=== PATIENT | female | born 1985 | race Caucasian/White ===

== ENCOUNTER → 2017-03-24 | Outpatient (CLI) | payer BC | END | disposition home or self-care (01) | LOC: LABWHC1 07:56 | PROVIDERS: ATTEND Obstetrics & Gynecology | DX: Z36.85 Encounter for antenatal screening for Streptococcus B (principal) | CPT/HCPCS: 36415; 82950 ==

== ENCOUNTER 2019-10-30 10:41 | Inpatient (IN) | payer BC ==
[2019-10-30] MEDS ORDERED: TERBUTALINE 1 MG/ML VIAL SQ PRN (11:01)
[2019-10-30] MEDS ORDERED: CARBOPROST TROMETHAMINE 250 MCG/ML 1 ML AMP IM PRN (11:01)
[2019-10-30] MEDS ORDERED: LIDOCAINE 0.5% (PF) 5 MG/ML (50 ML SDV) SQ PRN (11:01)
[2019-10-30] MEDS ORDERED: OXYTOCIN 10 UNIT/ML 1 ML VIAL IM PRN (11:01)
[2019-10-30] MEDS ORDERED: METHYLERGONOVINE 0.2 MG/ML 1 ML AMP IM PRN (11:01)
[2019-10-30] MEDS ORDERED: OXYTOCIN 30 UNITS/500 ML NS 30 UNIT in SALINE 1 500ML.BAG IV SCH (11:15)
--- NOTE | 2019-10-30 11:23 | P.HPOB ---
History of Present Illness H&P Date: 10/30/19 Chief Complaint: IUP@ 38 4/7 weeks, labor This is a pleasant 34-year-old 3 para 2001 at 39-4/7 weeks that presents to labor and delivery with regular painful contractions. Patient states contractions started around 6:30 this morning and became regular and painful matt und 9 AM. Patient denies loss of fluid or vaginal bleeding at this time. Patient notes good movement. Patient has been receiving routine care with myself since the first trimester. care is been essentially uncomplicated on blood work she has a blood type of A+, rubella status immune, RPR nonreactive, B surface antigen negative, HIV negative, she did pass her one-hour Glucola on 08/07. Group beta strep was negative on 10/08. Review of Systems Constitutional: Denies chills, Denies fatigue, Denies fever Ears, nose, mouth and throat: Denies headache Cardiovascular: Reports leg edema Respiratory: Denies dyspnea Gastrointestinal: Denies constipation, Denies diarrhea, Denies nausea, Denies vomiting Genitourinary: Reports Past Medical History Past Medical History: No Reported History Additional Past Medical History / Comment(s): eczema History of Any Multi-Drug Resistant Organisms: None Reported Additional Past Surgical History / Comment(s): non-cancerous lumps removed from vocal cords Past Anesthesia/Blood Transfusion Reactions: No Reported Reaction Past Psychological History: No Psychological Hx Reported Smoking Status: Never smoker Past Alcohol Use History: Occasional Past Drug Use History: None Reported - Past Family History Mother Family Medical History: Hyperlipidemia Medications and Allergies Home Medications Medication Instructions Recorded Confirmed Type Omeprazole [PriLOSEC] 1 tab DAILY 03/17/17 06/17/17 History Allergies Allergy/AdvReac Type Severity Reaction Status Date / Time amoxicillin Allergy Rash/Hives Verified 08/09/15 04:53 penicillin G Allergy Rash/Hives Verified 08/09/15 04:53 Exam Osteopathic Statement: *. No significant issues noted on an osteopathic structural exam other than those noted in the History and Physical/Consult. Vital Signs Temp Pulse Resp BP Pulse Ox 10/30/19 11:00 98.2 F 76 16 120/70 100 Intake and Output 10/29/19 10/30/19 10/30/19 22:59 06:59 14:59 Other: Weight 79.832 kg Targeted physical exam is performed on this date in general this is a well- nourished well-developed female in obvious active labor. Breathing is noted to be nonlabored, heart has regular rhythm, abdomen is gravid and appropriate for gestational age, on cervical exam she is 7/50/-2. heart tones are noted to be category 1 and she is thang every 2 minutes. Assessment and Plan (1) Active labor at term Current Visit: No Status: Acute Code(s): GHM5207 - SNOMED Code(s): 12069478 Plan: Patient is admitted to labor and delivery with anticipation of spontaneous vaginal delivery. Patient does desire epidural anesthesia is notified for placement.
[2019-10-30 11:33] LABS: Basophils % (A) 0 %; Eosinophils # (A) 0.1 k/uL (0-0.7); Eosinophils % (A) 1 %; HCT 33.4 % (34.0-46.0); HGB 10.6 gm/dL (11.4-16.0); Hypochromasia Marked; Lymphocytes # (A) 1.3 k/uL (1.0-4.8); Lymphocytes % (A) 11 %; MCH 25.3 pg (25.0-35.0); MCHC 31.7 g/dL (31.0-37.0); MCV 79.9 fL (80.0-100.0); Mean Platelet Volume 7.5; Monocytes # (A) 0.5 k/uL (0-1.0); Monocytes % (A) 4 %; Neutrophils # (A) 9.8 k/uL (1.3-7.7); Neutrophils % (A) 83 %; Platelet Count 401 k/uL (150-450); RBC 4.18 m/uL (3.80-5.40); RDW 14.3 % (11.5-15.5); WBC 11.8 k/uL (3.8-10.6)
[2019-10-30] MEDS: LACTATED RINGERS 1,000 ML IV SCH (11:54)
[2019-10-30 12:10] LABS: Anisocytosis (M) Present; Poikilocytosis (M) Present
[2019-10-30] MEDS ORDERED: ROPIVACAINE 100 MG, fentaNYL (PF) 200 MCG in SODIUM CHLORIDE 0.9% 76 ML EPIDURAL ONE (12:19)
--- NOTE | 2019-10-30 15:03 | P.PROBDLV ---
Vaginal Delivery Note - . Vaginal Delivery Note: This is a pleasant 34-year-old 3 para 2001 at 39-5/7 weeks that presents to labor and delivery with complaints of regular painful contractions. Patient was noted to be 7 cm upon admission. Patient subsequently got an epidural which was placed to the anesthesia Department without difficulty. Patient underwent amniotomy and clear fluid was obtained. Patient progressed to complete began pushing and had a normal spontaneous vaginal delivery of a viable male at 1442, weight of 8 lbs. 1 oz. with Apgars of 8 and 9 at one and 5 minutes respectively. After two-minute delayed the umbilical cord was doubly clamped and cut and the placenta was delivered spontaneously intact with a three-vessel cord being noted. On inspection the patient's vaginal vault a second-degree midline laceration was noted through an old episiotomy scar. This was infused with lidocaine and repaired in the usual fashion with 3-0 Rapide. Hemostasis was appreciated afterwards. The uterus was noted to be firm and below the umbilicus. Estimated blood loss 200 mL. Next All counts are correct 2 patient and infant tolerated delivery well and are resting comfortably.
[2019-10-30] MEDS ORDERED: ZOLPIDEM 5 MG TAB PO PRN (15:17)
[2019-10-30] MEDS ORDERED: LANOLIN CREAM 5 GM TUBE TOPICAL PRN (15:17)
[2019-10-30] MEDS ORDERED: diphenhydrAMINE 25 MG CAP PO PRN (15:17)
[2019-10-30] MEDS ORDERED: WITCH HAZEL 1 EACH MED..PAD TOPICAL PRN (15:17)
[2019-10-30] MEDS ORDERED: ACETAMINOPHEN TAB 325 MG TAB PO PRN (15:17)
[2019-10-30] MEDS ORDERED: SIMETHICONE 80 MG CHEWABLE PO PRN (15:17)
[2019-10-30] MEDS ORDERED: BENZOCAINE/MENTHOL SPRAY 1 GM/SPRAY AEROSOL TOPICAL PRN (15:17)
[2019-10-30] MEDS ORDERED: HYDROCORTISONE 2.5% RECTAL CREAM 30 GM TUBE RECTAL PRN (15:17)
[2019-10-30] MEDS ORDERED: diphenhydrAMINE 50 MG CAP PO PRN (15:17)
[2019-10-30] MEDS ORDERED: OXYTOCIN 20 UNITS/1000 ML NS 1,000 ML IV SCH (15:17)
[2019-10-30] MEDS ORDERED: HYDROcodone/APAP 5-325MG 1 EACH TAB PO PRN (15:17)
[2019-10-30] MEDS ORDERED: diphenhydrAMINE 50 MG/ML 1 ML VIAL IVP PRN ×2 (15:17)
[2019-10-30] MEDS: IBUPROFEN 600 MG TAB PO PRN ×2 (17:37→23:43)
[2019-10-30] MEDS: SENNOSIDES-DOCUSATE SODIUM 1 EACH TAB PO SCH (20:03)
[2019-10-30 20:57] VITALS: RESP 16
[2019-10-31 00:42] VITALS: TEMP 97.9
[2019-10-31] MEDS: IBUPROFEN 600 MG TAB PO PRN ×2 (05:26→12:02)
[2019-10-31 05:59] LABS: Basophils % (A) 0 %; Eosinophils # (A) 0.1 k/uL (0-0.7); Eosinophils % (A) 1 %; HCT 30.1 % (34.0-46.0); HGB 9.4 gm/dL (11.4-16.0); Hypochromasia Moderate; Lymphocytes # (A) 2.2 k/uL (1.0-4.8); Lymphocytes % (A) 18 %; MCHC 31.2 g/dL (31.0-37.0); MCV 80.1 fL (80.0-100.0); Mean Platelet Volume 7.3; Monocytes # (A) 0.9 k/uL (0-1.0); Monocytes % (A) 7 %; Neutrophils # (A) 8.6 k/uL (1.3-7.7); Neutrophils % (A) 70 %; Platelet Count 270 k/uL (150-450); RBC 3.76 m/uL (3.80-5.40); RDW 14.4 % (11.5-15.5); WBC 12.3 k/uL (3.8-10.6)
[2019-10-31] MEDS: SENNOSIDES-DOCUSATE SODIUM 1 EACH TAB PO SCH (07:53)
--- NOTE | 2019-10-31 08:19 | P.DS ---
Providers Date of admission: 10/30/19 10:41 Expected date of discharge: 10/31/19 Attending physician: Negar Clemente Primary care physician: Stated None - Discharge Diagnosis(es) (1) Active labor at term Current Visit: No Status: Acute (2) Normal spontaneous vaginal delivery Current Visit: No Status: Acute (3) Perineal laceration during delivery Current Visit: No Status: Acute Hospital Course: This is a pleasant 34-year-old 3 para 2001 at 39-5/7 weeks that presented to labor and delivery with complaints of regular painful contractions. Patient stated she started thang earlier in the morning and presented to labor and delivery. Patient was noted to be 7 cm upon arrival. Patient requested epidural placement which was placed by the anesthesia Department without difficulty. Patient progressed to complete began pushing and had a normal spontaneous vaginal delivery of a viable male infant at 1442, weight of 8 lbs. 1 oz. with Apgars of 8 and 9 at one and 5 minutes respectively. Patient did sustain a second-degree midline laceration during old episiotomy scar which was repaired in the usual fashion. Patient's course has been uneventful. This day #1 she is ambulating and voiding without difficulty. She states her pain is well-controlled with oral ibuprofen. She denies concerns and does wish discharge home at 24 hours. Patient Condition at Discharge: Good Plan - Discharge Summary New Discharge Prescriptions: No Action Omeprazole [PriLOSEC] 1 tab DAILY Discharge Medication List Omeprazole [PriLOSEC] 1 tab DAILY 03/17/17 [History] Follow up Appointment(s)/Referral(s): Negar Clemente DO [Doctor of Osteopathic Medicine] - 4 Weeks Patient Instructions/Handouts: Vaginal Delivery (DC), Vaginal Delivery (GEN)
[2019-10-31 08:55] VITALS: BP 105/68; PULSE 80
[2019-10-31] MEDS ORDERED: PANTOPRAZOLE 40 MG TABLET PO SCH (09:00)
== END 2019-10-31 15:10 | disposition home or self-care (01) | DRG 807 ==
LOC: 4FBP 10:41
PROVIDERS: ADMIT Obstetrics & Gynecology Obstetrics; ATTEND Obstetrics & Gynecology Obstetrics
PROC: 10907ZC Drainage of Amniotic Fluid, Therapeutic from Products of Conception, Via Natural or Artificial Opening (ICD-10-PCS; principal; 2019-10-30)
PROC: 0KQM0ZZ Repair Perineum Muscle, Open Approach (ICD-10-PCS; principal; 2019-10-30)
PROC: 00HU33Z Insertion of Infusion Device into Spinal Canal, Percutaneous Approach (ICD-10-PCS; principal; 2019-10-30)
PROC: 10E0XZZ Delivery of Products of Conception, External Approach (ICD-10-PCS; principal; 2019-10-30)
PROC: 3E0R3BZ Introduction of Anesthetic Agent into Spinal Canal, Percutaneous Approach (ICD-10-PCS; principal; 2019-10-30)
DX: O70.1 Second degree perineal laceration during delivery (principal); Z37.0 Single live birth; Z3A.39 39 weeks gestation of pregnancy; Z83.49 Family history of other endocrine, nutritional and metabolic diseases; Z84.89 Family history of other specified conditions; Z88.0 Allergy status to penicillin
CPT/HCPCS: 85025; 86850; 86900; 86901

== ENCOUNTER → 2020-02-13 | Outpatient (CLI) | payer BC ==
[2020-02-13 14:09] LABS: HCT 41.9 % (34.0-46.0); HGB 13.6 gm/dL (11.4-16.0); MCH 28.1 pg (25.0-35.0); MCHC 32.6 g/dL (31.0-37.0); MCV 86.2 fL (80.0-100.0); Mean Platelet Volume 7.1; Platelet Count 293 k/uL (150-450); RBC 4.86 m/uL (3.80-5.40); RDW 15.8 % (11.5-15.5); WBC 7.1 k/uL (3.8-10.6)
[2020-02-13 20:16] LABS: HCG,Quantitative Serum <2.0 mIU/mL
== END | disposition home or self-care (01) ==
LOC: LABWHC1 12:43
PROVIDERS: ATTEND Obstetrics & Gynecology Obstetrics
DX: N92.6 Irregular menstruation, unspecified (principal)
CPT/HCPCS: 36415; 84439; 84443; 84702; 85027

== ENCOUNTER → 2021-04-06 | Outpatient (CLI) | payer BC, OTHER | END | disposition home or self-care (01) | LOC: LABWHC1 15:51 | PROVIDERS: ATTEND Emergency Medicine | DX: Z20.822 Contact with and (suspected) exposure to COVID-19 (principal) | CPT/HCPCS: 87635 ==

== ENCOUNTER → 2021-04-07 | Outpatient (CLI) | payer BC, OTHER | END | disposition home or self-care (01) | LOC: LABWHC1 16:17 | PROVIDERS: ATTEND Emergency Medicine | DX: Z20.822 Contact with and (suspected) exposure to COVID-19 (principal) | CPT/HCPCS: 87635 ==

== ENCOUNTER 2024-06-17 19:46 | Outpatient (CLI) | payer BC ==
[2024-06-17] MEDS: NIFEdipine 10 MG CAP PO STA (20:22)
[2024-06-17 20:28] LABS: Appearance,Urine Clear (Clear); Bilirubin,Urine Negative (Negative); Blood,Urine Negative (Negative); Color,Urine Colorless; Glucose,Urine (UA) Negative (Negative); Ketones,Urine Negative (Negative); Leukocyte Esterase,Urine Negative (Negative); Nitrite,Urine Negative (Negative); PH, Urine 6.5 (5.0-8.0); Protein,Urine Negative (Negative); Specific Gravity,Urine 1.002 (1.001-1.035); Urobilinogen,Urine <2.0 mg/dL (<2.0)
[2024-06-17] MEDS: TERBUTALINE 1 MG/ML VIAL SQ PRN (21:20)
[2024-06-17 22:52] VITALS: BP 124/72; PULSE 101; RESP 17; TEMP 97.8
--- NOTE | 2024-07-20 15:45 | P.MSEPDOC ---
Presenting Problems - Arrival Data Date of Arrival on Unit: 06/17/24 Time of Arrival on Unit: 19:46 Mode of Transport: Ambulatory - Complaint OB-Reason for Admission/Chief Complaint: Possible Onset of Labor Comment: Pt arrives to triage with complaints of contractions that are about 3-4 mins apart and occasionally 9 mins apart. feel very tight and uncomfortable. she rates them a 4/10 Medical History - Information : 4 Para: 3 Term: 3 : 0 Abortions: Spontaneous or Elective: 0 Number of Living Children: 3 - Gestational Age Gestational Age by BELLE (wks/days): 33 Weeks and 0 Days - History Complications: Breech Review of Systems - Review of Systems Constitutional: No problems Breast: No problems ENT: No problems Cardiovascular: No problems Respiratory: No problems Gastrointestinal: No problems Genitourinary: No problems Musculoskeletal: No problems Neurological: No problems Skin: No problems Vital Signs - Temperature Temperature: 97.8 F Temperature Source: Oral - Pulse Pulse Oximetery Pulse Rate: 101 Pulse Assessment Method: Pulse Oximetry - Respirations Respiratory Rate: 17 Oxygen Delivery Method: Room Air O2 Sat by Pulse Oximetry: 100 - Blood Pressure Right Arm Blood Pressure: 124/72 Blood Pressure Mean: 89 Blood Pressure Source: Automatic Cuff Medical Screen Scoring - Cervical Exam Dilation (cm): 0 Effacement (%): 50 Station: -3 Membranes: Intact - Uterine Contractions Frequency From (mins): 2 Frequency To (mins): 2 Duration From (seconds): 60 Duration To (seconds): 90 Intensity: Moderate Resting: Soft to palpation - Assessment - Baby A Baseline FHR: 145 Heart Rate - NICHD Category: Category I (Normal) NST: Reactive Physician Notification - Physician Notified Physician Notified Date: 06/17/24 Physician Notified Time: 20:13 Physician: Shakira Montero Order Received: Yes - Notification Comment Comment: At 2012, RN spoke with Dr. 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 Reported reactive NST, vital signs WNL, UA collected and sent, FFN collected and sent, cervical exam closed/thick/high, and contx are every 2 minutes apart. Orders received to give pt one dose of procardia 10 mg PO once, wait for results of testing and watch contx for one hour then call with results. At 2109, reported UA results, FFN negative, procardia 10 mg PO given, contx are 2-3 minutes apart still and pt rates intensity the same. Order received to give pt terbutaline protocol and then recheck pt's cervix. At 2210, reported terbutaline 0.25mg SQ given twice, pt has not had any contx for about 20 minutes, cervix still closed/thick/high. RN to monitor pt/FHT/contx pattern for an hour from the time of the last dose of terbutaline and then can discharge pt home. Maternal Triage Index - Maternal Triage Index Presenting for scheduled procedure w/no complaint: No - Stat/Priority 1 Stat Priority 1: No - Urgent/Priority 2 Urgent Priority 2: Yes Provider Notified: Shakira Montero Provider Notified Time: 20:13 Criteria Met for Priority 2: < 34 weeks uterine contx Disposition - Disposition OB Disposition: Discharge to home, Written follow up instructions reviewed Discharge Date: 06/17/24 Discharge Time: 22:40 I agree with the RN Medical Screening Exam: Yes Physician's MSE Comment: I have neither seen nor examined the patient Case reviewed; plan agreed upon as documented in EMR&OBIX.: Yes Diagnosis: FALSE LABOR BEFORE 37 COMPLETED WEEKS OF GEST, SECOND TRI
== END 2024-06-17 22:40 | disposition home or self-care (01) ==
LOC: FBPOP 19:46
PROVIDERS: ATTEND Obstetrics & Gynecology
DX: O47.02 False labor before 37 completed weeks of gestation, second trimester (principal); Z3A.33 33 weeks gestation of pregnancy; Z88.0 Allergy status to penicillin
CPT/HCPCS: 59025; 99214; 96372; 82731; 81003; J3105